=== PATIENT | male | born 1965 | race African-American/Black ===

== ENCOUNTER 2019-03-31 10:34 | Emergency (ER) | payer OTHER ==
[2019-03-31 11:26] LABS: Arterial Blood Carboxyhemoglob 2.1 % (0-1.5); Blood Gas Oxyhemoglobin 95.5 % (94-97); Blood O2 Saturation 98.1 % (92-98.5)
[2019-03-31] MEDS ORDERED: HYDROCORTISONE SUC 100 MG INJ ONE (11:26)
[2019-03-31] MEDS ORDERED: WATER FOR INJ,STERILE 10 ML ONE (11:26)
[2019-03-31 11:32] LABS: Absolute Lymphocytes (CBC) 1.6 K/uL (0.7-4.9); Basophils % 0.9 % (0-1.3); Hematocrit 47.6 % (39.6-49.0); Lymphocytes % 30.9 % (15.3-44.8); MPV 9.7 fL (7.6-11.3); RBC Red Blood Cell Count 5.42 M/uL (4.33-5.43)
[2019-03-31 11:37] LABS: Protime INR 1.62
[2019-03-31 11:54] LABS: Albumin 2.8 g/dL (3.4-5.0); Bilirubin Direct 0.2 mg/dL (0-0.2); Bilirubin Total 0.6 mg/dL (0.2-1.0); CKMB Creatine Kinase MB 1.7 ng/mL (0.3-3.6); Potassium 4.3 mmol/L (3.5-5.1); Protein, Total 8.4 g/dL (6.4-8.2); Troponin (Emerg Dept Use Only) 0.17 ng/mL (0.0-0.045)
--- NOTE | 2019-03-31 12:34 | RAD REPORT ---
EXAM DESCRIPTION: RAD - Chest Single View - 03/31/2019 11:31 am CLINICAL HISTORY: Cough, defer blader placed 1 month earlier COMPARISON: None. TECHNIQUE: AP portable chest image was obtained 1125 hours . FINDINGS: No focal lung parenchymal process identifiable. Patient has a very large cardiac silhouett e. This could be from chamber enlargement or pericardial effusion. No vascular engorgement seen. Bila teral costophrenic angle blunting present. On a baseline study this could be small pleural effusions, pleural scarring or a combination. Left subclavian defibrillator in place. Patient has a double-lume n right jugular dialysis or venous access catheter. No acute bony abnormality seen. No acute aortic f indings suspected. IMPRESSION: Enlarged cardiac silhouette from chamber enlargement, pericardial effusion or a combinat ion. No vascular engorgement or additional findings for acute failure/ volume overload. Bilateral costophrenic angle blunting from pleural thickening, small pleural effusions or a combinati on.
--- NOTE | 2019-03-31 14:22 | ER ---
Nurse's Notes [facility] Name: Cassius Whelan Age: 53 yrs Sex: Male : 1965 Arrival Date: 03/31/2019 Time: 10:38 Bed 14 Private MD: Diagnosis: Chest pain, unspecified;Cardiomyopathy;End stage renal disease Presentation: 03/31 11:00 Presenting complaint: Child states: had defibrillator placed at [facility] in iw January, has been in and out of hospital, CVA in February, home health has been getting low pulse reading and low BP readings, pt has also had chest pains and SOB, recently started on dialysis on Mar 07, was seen at grease cup filler on and was taken off BP meds and off warfarin, started Eliquis. Transition of care: patient was not received from another setting of care. 11:00 Method Of Arrival: Wheelchair iw 11:00 Acuity: JASON 3 iw 11:01 Onset of symptoms was March 31, 2019. Risk Assessment: Do you want to hurt yourself tw2 or someone else? Patient reports no desire to harm self or others. Initial Sepsis Screen: Does the patient meet any 2 criteria? No. Patient's initial sepsis screen is negative. Does the patient have a suspected source of infection? No. Patient's initial sepsis screen is negative. Care prior to arrival: None. Historical: - Allergies: 11: No Known Allergies; iw - Home Meds: 11:09 Eliquis 5 mg oral tab 1 tab 2 times per day [Active]; torsemide 20 mg oral tab 1 tab iw once daily [Active]; atorvastatin 80 mg oral tab 1 tab once daily [Active]; aspirin 81 mg Oral TbEC 1 tab once daily [Active]; - PMHx: 11:09 Dialysis; CVA; Atrial Fib; iw 11:42 CHF; Hypertension; GERD; COPD; ESRD; tw2 - PSHx: 11:09 pacemaker/defibrillator; iw - Immunization history:: Adult Immunizations. - Social history:: Smoking status: . - Ebola Screening: : Patient denies travel to an Ebola-affected area in the 21 days before illness onset. Screenin:57 Abuse screen: Denies threats or abuse. Nutritional screening: No deficits noted. tw2 Tuberculosis screening: No symptoms or risk factors identified. Fall Risk None identified. Assessment: 10:50 General: Appears ill, Behavior is cooperative. Pain: Denies pain. Neuro: Level of tw2 Consciousness is awake, alert, obeys commands, Oriented to person, place. Cardiovascular: Heart tones S1 S2 Patient's skin is warm and dry. Respiratory: Airway is patent Respiratory effort is even, unlabored, Respiratory pattern is regular, symmetrical, Breath sounds are clear bilaterally. GI: No signs and/or symptoms were reported involving the gastrointestinal system. Abdomen is flat, Bowel sounds present X 4 quads. : No signs and/or symptoms were reported regarding the genitourinary system. EENT: No signs and/or symptoms were reported regarding the EENT system. Derm: Skin is dry, Skin temperature is warm. Musculoskeletal: Range of motion: limited in right shoulder, right elbow and right wrist. 11:50 Reassessment: Patient appears in no apparent distress at this time. No changes from tw2 previously documented assessment. Patient and/or family updated on plan of care and expected duration. Pain level reassessed. 12:48 Reassessment: Patient appears in no apparent distress at this time. No changes from tw2 previously documented assessment. Patient and/or family updated on plan of care and expected duration. Pain level reassessed. 13:22 Reassessment: Patient appears in no apparent distress at this time. No changes from tw2 previously documented assessment. Patient and/or family updated on plan of care and expected duration. Pain level reassessed. 14:22 Reassessment: Patient appears in no apparent distress at this time. No changes from tw2 previously documented assessment. Patient and/or family updated on plan of care and expected duration. Pain level reassessed. 15:17 Reassessment: Patient appears in no apparent distress at this time. No changes from tw2 previously documented assessment. Patient and/or family updated on plan of care and expected duration. Pain level reassessed. Vital Signs: 10:59 BP 90 / 76; Pulse 87; Resp 20; Temp 97.0(TE); Pulse Ox 100% on R/A; Weight 92.08 kg; iw Height 6 ft. (182.88 cm); 11:37 BP 101 / 83; Pulse 91; Resp 20; Pulse Ox 100% on R/A; tw2 11:47 BP 109 / 78; Pulse 83; Resp 16; Pulse Ox 100% on R/A; tw2 12:04 BP 98 / 79; Pulse 90; Resp 17; Pulse Ox 100% on R/A; tw2 12:20 BP 123 / 70; Pulse 62; Resp 17; Pulse Ox 100% on R/A; tw2 12:48 BP 102 / 87; Pulse 86; Resp 17; Pulse Ox 100% on R/A; tw2 13:00 BP 86 / 76; Pulse 73; Resp 17; Pulse Ox 100% on R/A; tw2 13:24 BP 86 / 66; Pulse 84; Resp 14; Pulse Ox 100% ; tw2 13:45 BP 99 / 80; Pulse 82; Resp 22; Pulse Ox 100% on R/A; tw2 14:22 BP 96 / 79; Pulse 85; Resp 22; Pulse Ox 100% on R/A; tw2 15:17 BP 110 / 86; Pulse 81; Resp 16; Pulse Ox 100% on R/A; tw2 10:59 Body Mass Index 27.53 (92.08 kg, 182.88 cm) iw 13:00 provider notified. tw2 13:24 provider notified. tw2 ED Course: 10:38 Patient arrived in ED. rg4 10:44 Bed in low position. Side rails up X2. Adult w/ patient. bus driver/monitor on. Pulse ox tw2 on. NIBP on. Warm blanket given. 10:46 Vianney Bunn FNP-C is PHCP. snw 10:46 Jerrod Eric MD is Attending Physician. snw 10:57 Sharron Santoro RN is Primary Nurse. tw2 10:58 Arm band placed on. tw2 11:07 Triage completed. iw 11:10 Inserted saline lock: 20 gauge in right antecubital area, using aseptic technique. tw2 Blood collected. 11:16 EKG done, by ED staff, reviewed by Vianney GAVIRIA. ms 11:34 X-ray completed. Portable x-ray completed in exam room. Patient tolerated procedure sw well. 12:00 Notified ED physician of a critical lab result(s). Lactate 2.1, creatinine 5.57. tw2 13:52 initiated a transfer with Genevieve Ramey from the [facility]. eb 14:[address] Yancey the grease cup filler residential remodeling subcontractor for [facility] with Vianney FOLLOW UP CLERK for eb patient transfer consultation. 14:13 Lactate Sent. tw2 14:13 AMMONIA Sent. tw2 14:15 administrative approval given by Genevieve Ramey/ patient has been accepted to [facility] bed 6108 / has accepted the patient in transfer/ report to be called to [phone]. 15:35 No provider procedures requiring assistance completed. IV discontinued, intact, tw2 bleeding controlled, No redness/swelling at site. Pressure dressing applied. Administered Medications: 12:12 Drug: HydroCORTISONE 100 mg Route: IVP; Site: right antecubital; tw2 12:45 Follow up: Response: No adverse reaction tw2 Outcome: 14:21 ER care complete, transfer ordered by MD. quezada 15:37 Transferred by ground EMS to [facility]. tw2 15:37 Condition: stable 15:37 Instructed on the need for transfer. 15:38 Patient left the ED. tw2 Signatures: Vianney Bunn, PATENT DRAFTER-C PATENT DRAFTER-Csnw Jo Meadows, RN RN iw Jazzmine Adams ms, Sharron Diaz RN RN tw2 Linda Juarez Elizabeth eb Corrections: (The following items were deleted from the chart) 11:09 10:59 BP 90 / 76; Pulse 87bpm; Resp 20bpm; Pulse Ox 100% RA; tw2 iw
--- NOTE | 2019-03-31 14:22 | EDPHYS ---
Physician Documentation [facility] Name: Cassius Whelan Age: 53 yrs Sex: Male : 1965 Arrival Date: 03/31/2019 Time: 10:38 Bed 14 Private MD: ED Physician Jerrod Eric HPI: 03/31 11:06 This 53 yrs old Black Male presents to ER via Wheelchair with complaints of Blood snw Pressure Problem. 11:06 Onset: The symptoms/episode began/occurred 2 month(s) ago, and became worse and became snw persistent. Associated signs and symptoms: Pertinent positives: pt with recent stroke, recent hypotension and bradycardia, family has taken him to [facility] many times over the past week. Pt awake, staring in space, not communicative. The patient has experienced similar episodes in the past. saw Cardiology . New defibrillator placed in May 2018, started dialysis 03/07/19. Historical: - Allergies: 11:09 No Known Allergies; iw - Home Meds: 11:09 Eliquis 5 mg oral tab 1 tab 2 times per day [Active]; torsemide 20 mg oral tab 1 tab iw once daily [Active]; atorvastatin 80 mg oral tab 1 tab once daily [Active]; aspirin 81 mg Oral TbEC 1 tab once daily [Active]; - PMHx: 11:09 Dialysis; CVA; Atrial Fib; iw 11:42 CHF; Hypertension; GERD; COPD; ESRD; tw2 - PSHx: 11:09 pacemaker/defibrillator; iw - Immunization history:: Adult Immunizations. - Social history:: Smoking status: . - Ebola Screening: : Patient denies travel to an Ebola-affected area in the 21 days before illness onset. ROS: 11:03 Eyes: Negative for injury, pain, redness, and discharge, ENT: Negative for injury, snw pain, and discharge, Neck: Negative for injury, pain, and swelling, Cardiovascular: Negative for chest pain, palpitations, and edema, in and out of [place] for bradycardia, hypotension. Saw Cardio, Dr. Park, , some HTN meds dc'd. No change in pt condition per report. 11:03 Abdomen/GI: Negative for abdominal pain, nausea, vomiting, diarrhea, and constipation, Back: Negative for injury and pain, : Negative for injury, bleeding, discharge, and swelling, MS/Extremity: Negative for injury and deformity, Skin: Negative for injury, rash, and discoloration, Neuro: Negative for headache, weakness, numbness, tingling, and seizure, Psych: Negative for depression, anxiety, suicide ideation, homicidal ideation, and hallucinations. 11:03 Constitutional: Positive for malaise. 11:03 Respiratory: Positive for pt family states they did work up and dx of pneumonia but they didn't treat secondary to other medication adjustments, concerns. Exam: 11:00 Head/Face: Normocephalic, atraumatic. Eyes: Pupils equal round and reactive to light, snw extra-ocular motions intact. Lids and lashes normal. Conjunctiva and sclera are non-icteric and not injected. Cornea within normal limits. Periorbital areas with no swelling, redness, or edema. ENT: Nares patent. No nasal discharge, no septal abnormalities noted. Tympanic membranes are normal and external auditory canals are clear. Oropharynx with no redness, swelling, or masses, exudates, or evidence of obstruction, uvula midline. Mucous membranes moist. Neck: Trachea midline, no thyromegaly or masses palpated, and no cervical lymphadenopathy. Supple, full range of motion without nuchal rigidity, or vertebral point tenderness. No Meningismus. Chest/axilla: Normal chest wall appearance and motion. Nontender with no deformity. No lesions are appreciated. 11:00 Respiratory: Lungs have equal breath sounds bilaterally, clear to auscultation and percussion. No rales, rhonchi or wheezes noted. No increased work of breathing, no retractions or nasal flaring. Abdomen/GI: Soft, non-tender, with normal bowel sounds. No distension or tympany. No guarding or rebound. No evidence of tenderness throughout. Back: No spinal tenderness. No costovertebral tenderness. Full range of motion. Skin: Warm, dry with normal turgor. Normal color with no rashes, no lesions, and no evidence of cellulitis. MS/ Extremity: Pulses equal, no cyanosis. Neurovascular intact. Full, normal range of motion. 11:00 Constitutional: The patient appears awake, recent stroke, pt no longer speaks 11:00 Cardiovascular: Rate: normal, Rhythm: multiple frequent PVC's, wide QRS, Pulses: no pulse deficits are appreciated, Edema: is not appreciated. 11:00 Neuro: Orientation: does not communicate. Vital Signs: 10:59 BP 90 / 76; Pulse 87; Resp 20; Temp 97.0(TE); Pulse Ox 100% on R/A; Weight 92.08 kg; iw Height 6 ft. (182.88 cm); 11:37 BP 101 / 83; Pulse 91; Resp 20; Pulse Ox 100% on R/A; tw2 11:47 BP 109 / 78; Pulse 83; Resp 16; Pulse Ox 100% on R/A; tw2 12:04 BP 98 / 79; Pulse 90; Resp 17; Pulse Ox 100% on R/A; tw2 12:20 BP 123 / 70; Pulse 62; Resp 17; Pulse Ox 100% on R/A; tw2 12:48 BP 102 / 87; Pulse 86; Resp 17; Pulse Ox 100% on R/A; tw2 13:00 BP 86 / 76; Pulse 73; Resp 17; Pulse Ox 100% on R/A; tw2 13:24 BP 86 / 66; Pulse 84; Resp 14; Pulse Ox 100% ; tw2 13:45 BP 99 / 80; Pulse 82; Resp 22; Pulse Ox 100% on R/A; tw2 14:22 BP 96 / 79; Pulse 85; Resp 22; Pulse Ox 100% on R/A; tw2 15:17 BP 110 / 86; Pulse 81; Resp 16; Pulse Ox 100% on R/A; tw2 10:59 Body Mass Index 27.53 (92.08 kg, 182.88 cm) iw 13:00 provider notified. tw2 13:24 provider notified. tw2 MDM: 10:51 Patient medically screened. sabine 13:56 Data reviewed: vital signs, nurses notes. Data interpreted: Pulse oximetry: on room air snw is 100 %. Interpretation: normal. Counseling: I had a detailed discussion with the patient and/or guardian regarding: the historical points, exam findings, and any diagnostic results supporting the discharge/admit diagnosis, lab results, radiology results, the need to transfer to another facility, for higher level of care, [facility] does not immediately have the required specialist, Pt family requests transfer to [facility]. ED course: Transfer initiation . 14:16 Physician consultation: Dr. Yancey was called at 14:15, was contacted at 14:15, snw regarding regarding transfer, to [facility]. Spoke to Dr. Yancey. He kindly accepts pt in transfer to [facility] . 03/31 11:00 Order name: T\T\S sn 03/31 11:00 Order name: ABG snw 03/31 11:00 Order name: Basic Metabolic Panel [facility] 03/31 11:00 Order name: Blood Culture Adult (2) [facility] 03/31 11:00 Order name: CBC with Diff sn 03/31 11:00 Order name: Ckmb sn 03/31 11:00 Order name: CPK sn 03/31 11:00 Order name: Lactate [facility] 03/31 11:00 Order name: LFT's [facility] 03/31 11:00 Order name: Lipase [facility] 03/31 11:00 Order name: Procalcitonin [facility] 03/31 11:00 Order name: Protime (+inr) [facility] 03/31 11:00 Order name: Ptt, Activated [facility] 03/31 11:00 Order name: Troponin (emerg Dept Use Only) [facility] 03/31 11:34 Order name: ABG Arterial Blood Gas; Complete Time: 11:40 EDMS 03/31 11:41 Order name: CBC with Automated Diff; Complete Time: 11:42 EDMS 03/31 11:42 Order name: Protime (+INR); Complete Time: 11:42 EDMS 03/31 11:42 Order name: PTT, Activated Partial Thromb; Complete Time: 11:42 EDMS 03/31 11:57 Order name: Lactate; Complete Time: 12:11 EDMS 03/31 12:01 Order name: Basic Metabolic Panel; Complete Time: 12:11 EDMS 03/31 12:01 Order name: Liver (Hepatic) Function; Complete Time: 12:11 EDMS 03/31 12:01 Order name: Creatine Phosphokinase; Complete Time: 12:11 EDMS 03/31 12:01 Order name: CKMB Creatine Kinase MB; Complete Time: 12:11 EDMS 03/31 12:01 Order name: Troponin (Emerg Dept Use Only); Complete Time: 12:11 EDMS 03/31 12:01 Order name: Lipase; Complete Time: 12:11 EDMS 03/31 12:03 Order name: Procalcitonin; Complete Time: 12:11 EDMS 03/31 12:09 Order name: Type and Screen; Complete Time: 12:11 EDMS 03/31 13:50 Order name: AMMONIA sn 03/31 13:50 Order name: Lactate snw 03/31 11:00 Order name: Chest Single View XRAY snw 03/31 11:00 Order name: Cardiac monitoring; Complete Time: 11:02 snw 03/31 11:00 Order name: EKG - Nurse/Tech; Complete Time: 11:16 snw 03/31 11:00 Order name: IV Saline Lock - Large Bore; Complete Time: 11:26 snw 03/31 11:00 Order name: Labs collected and sent; Complete Time: 11:26 snw 03/31 11:00 Order name: O2 Per Protocol; Complete Time: 11:26 snw 03/31 11:00 Order name: O2 Sat Monitoring; Complete Time: 11:26 snw 03/31 12:57 Order name: RAD; Complete Time: 13:02 EDMS 03/31 14:33 Order name: Ammonia; Complete Time: 14:36 EDMS 03/31 14:46 Order name: Lactate; Complete Time: 14:52 EDMS Administered Medications: 12:12 Drug: HydroCORTISONE 100 mg Route: IVP; Site: right antecubital; tw2 12:45 Follow up: Response: No adverse reaction tw2 Disposition: 04/01 13:30 Co-signature as Attending Physician, Jerrod Eric MD I agree with the assessment and sabine plan of care. Disposition: 03/31/19 14:21 Transfer ordered to [facility]. Diagnosis are Chest pain, unspecified, Cardiomyopathy, End stage renal disease. - Reason for transfer: Higher level of care. - Accepting physician is Dr. Yancey. - Condition is Fair. - Problem is an ongoing problem. - Symptoms are unchanged. Signatures: Dispatcher [employer] Jerrod Smith MD MD cha Therrien, Shelly, FNP-Conrad TURNER MACHINE OPERATOR-Csnw Jo Meadows, RN RN Sharron Lopez RN RN tw2 Corrections: (The following items were deleted from the chart) 03/31 11:25 11:00 Accucheck ordered. [facility] tw2 15:38 14:21 03/31/2019 14:21 Transfer ordered to [facility]. Diagnosis is tw2 Chest pain, unspecified; Cardiomyopathy; End stage renal disease. Reason for transfer: Higher level of care. Accepting physician is Dr. Yancey. Condition is Fair. Problem is an ongoing problem. Symptoms are unchanged. snw
[2019-03-31 16:27] VITALS: O2SAT 100
[2019-03-31 16:41] VITALS: BP 110/86
[2019-03-31 18:49] VITALS: TEMP 97
--- NOTE | 2019-04-01 12:47 | EKG ---
Test Date: 2019-03-31 Test Time: 11:10:03 Nurse General Duty: VIVIEN MEASUREMENT RESULTS: Intervals: Rate: 83 ID: [id number] QRSD: 166 QT: 432 QTc: 507 [place]: P: 238 ID: [id number] QRS: 251 T: 69 INTERPRETIVE STATEMENTS: Atrial-sensed ventricular-paced rhythm with fusion complexes Abnormal ECG Compared to ECG 03/31/2019 11:09:22 Fusion complex(es) now present Ventricular premature complex(es) no longer present Electronically Signed On 04-01-19 12:45:11 PHARMACEUTICAL DETAILER by Bala Mercer
--- NOTE | 2019-04-01 12:47 | EKG ---
Test Date: 2019-03-31 Test Time: 11:09:22 Inspector Fabric: VIVIEN MEASUREMENT RESULTS: Intervals: Rate: 86 SD: QRSD: 160 QT: 424 QTc: 507 [place]: P: 232 SD: QRS: 251 T: 63 INTERPRETIVE STATEMENTS: Ventricular-paced rhythm with premature ventricular or aberrantly conducted complexes Abnormal ECG No previous ECG available for comparison Electronically Signed On 04-01-19 12:45:13 SEARCH MARKETING ANALYST by Bala Mercer
== END 2019-03-31 15:38 | disposition short-term general hospital (02) ==
LOC: ER 10:34
DX: I42.9 Cardiomyopathy, unspecified (principal); I12.0 Hypertensive chronic kidney disease with stage 5 chronic kidney disease or end stage renal disease; N18.6 End stage renal disease; Z99.2 Dependence on renal dialysis; I48.91 Unspecified atrial fibrillation; J44.9 Chronic obstructive pulmonary disease, unspecified; Z79.02 Long term (current) use of antithrombotics/antiplatelets; Z79.82 Long term (current) use of aspirin; Z95.810 Presence of automatic (implantable) cardiac defibrillator
CPT/HCPCS: 36415; 71045; 80048; 80076; 82140; 82550; 82553; 82805; 83605; 83690; 84145; 84484; 85025; 85610; 85730; 86850; 86900; 86901; 87040; 93005; 96374; 99285; J1720